=== PATIENT | female | born 1985 | race Caucasian/White ===

== ENCOUNTER 2017-01-10 06:50 | Emergency (ER) | payer OTHER ==
[~2017-01-10] VITALS: Ht 157.5 cm; Wt 92.9 kg
[~2017-01-10 06:50] MED LIST: ABILIFY10 MG PO; ABILIFY15 MG PO; ADDERALL10 MG PO; ADDERALL20 MG PO; AMOXICILLIN500 M1 PO; BACTRIM,SEPT1 TABLET PO; ENDOCET 5-3251 EACH PO; FOLVITE1 M1 PO; Feosol PO; KEFLEX500 MG PO; KEPPRA500 MG PO; LEVAQUIN750 MG PO; LEXAPRO20 MG PO; LEXIVA700 MG PO; LORTAB 5-325 M1 EACH PO; LYRICA75 MG PO; MOTRIN600 MG PO; NATALCARE RX1 TABLE1 PO; NOHOMEMEDS; NORVIR100 M1 PO; NORVIR100 MG PO; PEN-VEE K,VEET500 MG PO; PERCOCET 5/31 TABLET PO; PREDNISONE20 MG PO; PREZISTA800 MG PO; PROzac PO; Proventil,Ventolin H IH; TRUVADA1 TABLET PO; ULTRAM50 MG PO; Wellbutrin SR PO; XANAX0.5 MG PO; XANAX2 MG PO; ZITHROMAX Z-PA250 MG PO
[2017-01-10] MEDS ORDERED: STRIBILD TABLE1 EACH PO (07:06)
[2017-01-10 08:18] LABS: EOSINOPHIL (%) 6.2 % (0-5); EOSINOPHIL COUNT 0.2 K/uL (0-0.3); HEMATOCRIT 40.2 % (36.0-46.0); IMMATURE GRANULOCYTE (%) 0.3 % (0.0-0.7); IMMATURE GRANULOCYTE COUNT 0.1 K/uL; LYMPHOCYTE COUNT 0.7 K/uL (1.0-2.8); MCH 31.5 PG (29.0-34.0); MCHC 34.6 G/DL (30.0-36.0); MCV 91.2 FL (83-99); MEAN PLAT.VOLUME 11.9 uM^3 (9.5-12.4); MONOCYTE (%) 9.4 % (3-12); MONOCYTE COUNT 0.4 K/uL (0-0.8); NEUTROPHIL (%) 65.4 % (45-76); NEUTROPHIL COUNT 2.5 K/uL (1.8-6.4); PLATELET COUNT 164 K/uL (156-360); RBC DIS.WIDTH-CV 13.9 % (11.8-14.6); RBC DIS.WIDTH-SD 45.3 % (39-53); RED BLOOD COUNT 4.41 M/uL (3.80-5.20); WHITE BLOOD COUNT 3.9 K/uL (4.1-10.2)
[2017-01-10 08:36] LABS: CHLORIDE 110 mEq/L (99-109); POTASSIUM 3.6 mEq/L (3.7-5.4); SODIUM 142 mEq/L (136-147)
[2017-01-10 08:39] LABS: GLUCOSE 101 mg/dL (70-99)
[2017-01-10 08:40] LABS: ANION GAP 9 MEQ/L (2-14)
[2017-01-10 08:41] LABS: TOTAL BILIRUBIN 0.3 mg/dL (0.0-1.0)
[2017-01-10 08:42] LABS: ALKALINE PHOSPHATASE 80 IU/L (3-129); GFR ESTIMATE (CALCULATED) > 59 mL/min/
[2017-01-10 08:43] LABS: UREA NITROGEN (BUN) 10 mg/dL (9-23)
[2017-01-10] MEDS ORDERED: CLEOCIN300 MG PO (10:39)
[2017-01-10] MEDS ORDERED: NAPROXEN500 MG PO (10:42)
[2017-01-10 11:13] VITALS: BP 127/88
== END 2017-01-10 11:14 | disposition home or self-care (01) ==
LOC: EME 06:50
PROVIDERS: Physician Assistant
DX: L03.113 Cellulitis of right upper limb (principal); L02.411 Cutaneous abscess of right axilla; Z21 Asymptomatic human immunodeficiency virus [HIV] infection status; J44.9 Chronic obstructive pulmonary disease, unspecified; M79.89 Other specified soft tissue disorders
CPT/HCPCS: 76882; 80053; 83605; 85025; 87040; 99281; 99284; J3010; J7120